=== PATIENT | male | born 1980 | race Caucasian/White ===

== ENCOUNTER 2021-08-07 07:35 | Emergency (ER) | payer BC ==
--- NOTE | 2021-08-07 09:35 | EDM.PDOC ---
ED HPI GENERAL MEDICAL PROBLEM - General Stated Complaint: FISH BONE STUCK IN THROAT Time Seen by Provider: 08/07/21 09:00 Source of Information: Reports: Patient History Limitations: Reports: No Limitations - History of Present Illness INITIAL COMMENTS - FREE TEXT/NARRATIVE: This patient presents to the emergency department with a foreign body sensation in his throat. He states he was eating while I last night when he noticed this and denies having any choking sensations with it. He did eat some bread after this and had no trouble with that through the night. He states on occasion he feels something in the back of his throat when he swallows. It is not constant but only occasionally. He denies any difficulty breathing, difficulty swallowing or drinking. ED ROS GENERAL - Review of Systems Review Of Systems: Comprehensive ROS is negative, except as noted in HPI. ED EXAM, GENERAL - Physical Exam Exam: See Below Exam Limited By: No Limitations General Appearance: Alert, WD/WN, No Apparent Distress Eye Exam: Bilateral Eye: PERRL Nose: Normal Inspection Throat/Mouth: Normal Inspection, Normal Oropharynx, Normal Voice, No Airway Co mpromise. No: Dysphagia Head: Atraumatic, Normocephalic Neck: Normal Inspection, Supple, Non-Tender, Full Range of Motion Respiratory/Chest: No Respiratory Distress Neurological: Alert, Oriented Course - Re-Assessments/Exams Free Text/Narrative Re-Assessment/Exam: 08/07/21 09:44 This patient presents to the emergency department for evaluation of a foreign body sensation. X-ray evaluation did not identify a foreign body. It is likely that the patient did have a swallowed foreign body which he was able to move on his own; however, inflammation in the area has given him the sense of a foreign body remaining. Given his normal physical exam and generally well appearance, will be discharged home with instructions to follow-up as needed. Departure - Departure Time of Disposition: 09:40 Disposition: DC/Tfer W/I Hosp To Swing 61 Condition: Good Clinical Impression: Foreign body sensation in throat - Discharge Information *PRESCRIPTION DRUG MONITORING PROGRAM REVIEWED*: Not Applicable *COPY OF PRESCRIPTION DRUG MONITORING REPORT IN PATIENT [place]: Not Applicable Referrals: Dallas Arrieta MD [Primary Care Provider] - Additional Instructions: No special care is needed.
--- NOTE | 2021-08-07 09:37 | CR ---
DATE OF SERVICE: 08/07/2021 CLINICAL DATA: FOREIGN BODY - FISHBONE AP and lateral soft tissue neck: No radiodense foreign bodies. The osseous structures are unremarkable. No soft tissue abnormalities. MTDD
== END 2021-08-07 09:45 | disposition home or self-care (01) ==
LOC: LB.ED 07:35
DX: R09.89 Other specified symptoms and signs involving the circulatory and respiratory systems (principal)
CPT/HCPCS: 70360; 99283-25